=== PATIENT | female | born 1985 | race Caucasian/White ===

== ENCOUNTER 2022-07-25 08:18 | Outpatient (CLI) | payer MEDICAID ==
--- NOTE | 2022-07-25 10:19 | Ultrasound Report ---
LIMITED ULTRASOUND OF RIGHT BREAST: 07/25/2022 CLINICAL: Palpable right breast lump. Comparison is made to exam dated: 07/25/2022 mammogram - [facility]. Ultrasound of the right breast 9 o'clock region was performed. Meyer scale images of the real-time ex amination were reviewed. IMPRESSION: NEGATIVE There is no sonographic evidence of malignancy. There is no abnormality seen in the right breast to correspond with the area of clinical concern at 9 o'clock which likely represents normal fibroglandular tissue, however, clinical correlation and clin ical followup are recommended. Patient was advised to return for followup imaging if she or her doctor notices any clinical abnormal ity that is new or enlarging. Please also note patient's elevated lifetime risk. Consider MRI screeni ng in addition to mammography when she is appropriate screening age in the context of her past medica l and family history. This exam was interpreted at Station ID: [id number]. Electronically Signed By: Patrick Hackett M.D. lc/:07/25/2022 09:38:18 Ultrasound BI-RADS: 1 Negative BI-RADS CATEGORY: (1) - 1 Unspecified - other recall n/a LATERALITY: (B)
--- NOTE | 2022-07-25 10:19 | Mammography Report ---
BILATERAL DIGITAL DIAGNOSTIC MAMMOGRAM 3D/2D: 07/25/2022 CLINICAL: Baseline exam. Palpable right breast lump. No prior exams were available for comparison. Both breasts are extremely dense, which lowers the sensitivity of mammography (category d />75% gland ular tissue). No significant masses, calcifications, or other findings are seen in either breast. IMPRESSION: INCOMPLETE: NEEDS ADDITIONAL IMAGING EVALUATION There is no abnormality seen in the right breast to correspond with the area of clinical concern at 9 o'clock, however, ultrasound is recommended. Based on Tyrer-Cuzick model (a risk assessment model), the patient's lifetime risk is 26.4% and her 1 0 year risk is 3.0%. If a patient has an elevated risk, a more comprehensive evaluation should be con sidered and/or a referral to a genetic counselor. The [employer], [employer], and NCCN Guidelines advise the consideration of Breast MRI as an adjunct to screening mammog lorena in patients whose "Lifetime risk to develop breast cancer" is 20% or higher. This exam was interpreted at Station ID: [id number]. NOTE: For mammograms, a report in lay terms will be sent to the patient. Approximately 15% of breast malignancies will not be visualized mammographically. In the management of a palpable breast mass, a negative mammogram must not discourage biopsy of a clinically suspicious lesion. Electronically Signed By: Patrick Hackett M.D. lc/:07/25/2022 09:35:09 ACR BI-RADS Category 0: Incomplete 3340F PARENCHYMAL PATTERN: (VD) - The breast(s) demonstrate(s) extremely dense parenchyma, limiting the sen sitivity of mammography. BI-RADS CATEGORY: (0) - 0 Ultrasound [id number] Immediate follow-up LATERALITY: (B)
== END 2022-07-25 08:19 | disposition home or self-care (01) ==
LOC: DI 08:18
PROVIDERS: ATTEND Nurse Practitioner
DX: N63.13 Unspecified lump in the right breast, lower outer quadrant (principal)

== ENCOUNTER 2022-10-15 18:44 | Outpatient (CLI) | payer OTHER, MEDICAID ==
--- NOTE | 2022-10-16 10:43 | Ultrasound Report ---
PROCEDURE: Head or Neck Soft Tissue INDICATIONS: GOITER TECHNIQUE: Real-time scanning was performed of the thyroid gland, with image documentation. COMPARISON: None FINDINGS: Right: Thyroid lobe measures 5.3 x 1.5 x 2.0 cm, and contains multiple tiny less than 5 mm cysts. It is otherwise quite homogeneous. Left: Thyroid lobe measures 5.3 x 1.6 x 1.6 cm, contains multiple tiny less than 5 mm cysts. It is o therwise quite homogeneous. Isthmus: 3 mm thick. IMPRESSION: No suspicious thyroid nodules. No requirement for routine scheduled follow-up. Reviewed by: Uriel Galdamez MD on 10/16/2022 10:41 AM PDT Approved by: Uriel Galdamez MD on 10/16/2022 10:41 AM PDT Station ID: [id number]
== END 2022-10-15 18:45 | disposition home or self-care (01) ==
LOC: DI 18:44
PROVIDERS: ATTEND Nurse Practitioner Family
DX: E04.9 Nontoxic goiter, unspecified (principal)

== ENCOUNTER 2022-10-16 16:45 | Outpatient (CLI) | payer OTHER, MEDICAID ==
[2022-10-16 21:08] LABS: BASOPHILS % (AUTO) 0.6 %; EOSINOPHILS # (AUTO) 0.1 10^3/uL (0.0-0.7); HCT - HEMATOCRIT 41.7 % (37.0-47.0); HGB - HEMOGLOBIN 13.3 g/dL (12.0-16.0); LYMPHOCYTES # (AUTO) 1.7 10^3/uL (1.5-3.5); LYMPHOCYTES % (AUTO) 35.7 %; MEAN CORPUSCULAR HEMOGLOBIN 28.7 pg (27.0-31.0); MEAN CORPUSCULAR HGB CONC 31.9 g/dL (32.0-36.0); MEAN CORPUSCULAR VOLUME 90.1 fL (81.0-99.0); MEAN PLATELET VOLUME 9.8 fL (7.9-10.8); MONOCYTES # (AUTO) 0.8 10^3/uL (0.0-1.0); MONOCYTES % (AUTO) 16.3 %; NEUTROPHILS # (AUTO) 2.1 10^3/uL (1.5-6.6); NEUTROPHILS % (AUTO) 44.4 %; PLT - PLATELET COUNT 250 10^3/uL (130-450); RED BLOOD COUNT 4.63 10^6/uL (4.20-5.40); RED CELL DISTRIBUTION WIDTH 13.2 % (12.0-15.0); WHITE BLOOD COUNT 4.7 x10^3/uL (4.8-10.8)
[2022-10-16 21:14] LABS: ESTIMATED AVERAGE GLUCOSE 88 mg/dL (70-100); HEMOGLOBIN A1c% 4.7 % (4.27-6.07)
[2022-10-16 21:23] LABS: ALBUMIN 3.8 g/dL (3.2-5.5); ALBUMIN/GLOBULIN RATIO 1.1 (1.0-2.2); ALKALINE PHOSPHATASE 47 IU/L (42-121); ALT ALANINE AMINOTRANSFERASE 18 IU/L (10-60); AST ASPARTATE AMINOTRANSFERASE 16 IU/L (10-42); BILIRUBIN,TOTAL 0.2 mg/dL (0.2-1.0); BUN - BLOOD UREA NITROGEN 7 mg/dL (6-20); CALCIUM 8.7 mg/dL (8.5-10.3); CARBON DIOXIDE - CO2 27 mmol/L (21-32); CHLORIDE 105 mmol/L (101-111); CHOL/HDL RATIO 2.8 (<4.4); CHOLESTEROL 144 mg/dL; CREATININE 0.6 mg/dL (0.4-1.0); GFR - MDRD 112 (>89); GLUCOSE 100 mg/dL (70-100); HDL CHOLESTEROL 51 mg/dL; LDL CHOLESTEROL,CALCULATED 72 mg/dL; LDL/HDL RATIO 1.4 (<4.4); POTASSIUM 3.8 mmol/L (3.5-5.0); SODIUM 138 mmol/L (135-145); TOTAL PROTEIN 7.3 g/dL (6.7-8.2); TRIGLYCERIDES 106 mg/dL; VLDL CHOLESTEROL 21 mg/dL
[2022-10-16 23:32] LABS: THYROID STIMULATING HORMONE 0.61 uIU/mL (0.34-5.60)
== END 2022-10-16 16:46 | disposition home or self-care (01) ==
LOC: LAB.N 16:45
PROVIDERS: ATTEND Nurse Practitioner Family
DX: Z86.79 Personal history of other diseases of the circulatory system (principal)
CPT/HCPCS: 36415; 80053; 80061; 83036; 83721; 84443; 85025

== ENCOUNTER 2023-05-27 17:37 | Outpatient (CLI) | payer OTHER ==
[2023-05-27 21:22] LABS: THYROID STIMULATING HORMONE 1.11 uIU/mL (0.34-5.60)
== END 2023-05-27 17:38 | disposition home or self-care (01) ==
LOC: LAB.N 17:37
PROVIDERS: ATTEND Nurse Practitioner Family
DX: E05.80 Other thyrotoxicosis without thyrotoxic crisis or storm (principal)
CPT/HCPCS: 36415; 84439; 84443; 84481

== ENCOUNTER 2023-08-09 13:37 | Outpatient (CLI) | payer OTHER ==
--- NOTE | 2023-08-09 14:43 | XRAY Report ---
PROCEDURE: Lumbar Spine 2-3V INDICATIONS: LOW BACK PAIN TECHNIQUE: 2 views of the lumbar spine were acquired. COMPARISON: None. FINDINGS: Bones: 5 [id number] vertebrae are present. There is normal bony alignment. No vertebral body compression fractures. No suspicious bony lesions. Soft tissues: Overlying bowel gas pattern is normal. No suspicious soft tissue calcifications. IMPRESSION: Reviewed by: Rudolph Malin MD on 08/09/2023 2:42 PM PST Approved by: Rudolph Malin MD on 08/09/2023 2:42 PM PST Station ID: [id number]
--- NOTE | 2023-08-09 14:43 | XRAY Report ---
PROCEDURE: Cervical Spine 2-3V INDICATIONS: ACUTE NECK PAIN TECHNIQUE: 3 view(s) of the cervical spine were acquired. COMPARISON: None. FINDINGS: Bones: No fractures or dislocations to the T1 level. The lateral masses of C1 appear intact on the odontoid view. No suspicious bony lesions. Soft tissues: No prevertebral soft tissue swelling. IMPRESSION: No displaced fracture or traumatic subluxation. Reviewed by: Rudolph Malin MD on 08/09/2023 2:41 PM PST Approved by: Rudolph Malin MD on 08/09/2023 2:41 PM PST Station ID: [id number]
== END 2023-08-09 13:38 | disposition home or self-care (01) ==
LOC: DI.N 13:37
PROVIDERS: ATTEND Specialist
DX: M54.2 Cervicalgia (principal); M54.50 Low back pain, unspecified

== ENCOUNTER 2023-08-29 18:00 | Outpatient (CLI) | payer OTHER ==
[2023-08-29 22:44] LABS: BACTERIAL VAGINOSIS DNA POSITIVE (NEGATIVE); CANDIDA GLABRATA DNA NEGATIVE (NEGATIVE); CANDIDA GROUP DNA POSITIVE (NEGATIVE); CANDIDA KRUSEI DNA NEGATIVE (NEGATIVE); TRICHOMONAS VAGINALIS DNA NEGATIVE (NEGATIVE)
== END 2023-08-29 18:15 | disposition home or self-care (01) ==
LOC: LAB.N 18:00
PROVIDERS: ATTEND Physician Assistant Medical
DX: R30.0 Dysuria (principal); N89.8 Other specified noninflammatory disorders of vagina
CPT/HCPCS: 81514; 87086